=== PATIENT | female | born 1995 | race American Indian/Alaskan Native ===

== ENCOUNTER 2022-11-14 00:12 | Inpatient (IN) | payer BC, MEDICAID ==
[2022-11-14] MEDS ORDERED: Acetaminophen 325 MG Tab PO PRN (09:03)
[2022-11-14] MEDS ORDERED: Sodium Chloride 0.9% 10 ML Syringe FLUSH PRN (09:03)
[2022-11-14] MEDS ORDERED: Carboprost Tromethamine 250 MCG/1 ML Amp IM PRN (09:05)
[2022-11-14] MEDS ORDERED: Lidocaine 1% 30 ML SDV INJECT PRN (09:05)
[2022-11-14] MEDS ORDERED: Tranexamic Acid 1,000 MG in Sodium Chloride 0.9% 100 ML IV PRN (09:05)
[2022-11-14] MEDS ORDERED: Methylergonovine 0.2 MG/1 ML Amp IM PRN (09:05)
[2022-11-14] MEDS ORDERED: Ondansetron 4 MG/2 ML SDV IVPUSH PRN (09:05)
[2022-11-14] MEDS ORDERED: Misoprostol 400 MCG (4 X 100 MCG TAB) RECTAL PRN (09:05)
[2022-11-14] MEDS ORDERED: Misoprostol 25 MCG (1/4 of 100 MCG) Tab VAG PRN (09:10)
[2022-11-14] MEDS ORDERED: Oxytocin/Normal Saline 30 UNIT/500 ML BAG IV SCH ×2 (09:15)
[2022-11-14] MEDS ORDERED: Lactated Ringers 1,000 ML IV SCH (09:15)
[2022-11-14] MEDS: Lactated Ringers 1,000 ML IV SCH ×2 (13:51→17:04)
[2022-11-14] MEDS ORDERED: ePHEDrine 50 MG/ML SDV IVPUSH PRN (15:51)
[2022-11-14] MEDS ORDERED: Phenylephrine HCl In 0.9% NaCl 1 MG/10 ML Syringe IVPUSH PRN (15:51)
[2022-11-14] MEDS ORDERED: Ropivacaine 200 MG in Premix Bag 1 BAG EPIDUR SCH (16:00)
[2022-11-14] MEDS: Ropivacaine 200 MG in Premix Bag 1 BAG EPIDUR SCH ×2 (16:24→23:01)
[2022-11-14] MEDS: Sodium Chloride 0.9% 10 ML Syringe FLUSH SCH (21:08)
[2022-11-15] MEDS ORDERED: Benzocaine/Menthol 20%-0.5% Spray 78 GM Cannister TOP PRN (00:33)
[2022-11-15] MEDS ORDERED: Simethicone 80 MG Tab.Chew PO PRN (00:33)
[2022-11-15] MEDS: Prenatal Multivitamin with Calcium/Folic Acid/Iron Tab PO SCH (11:03)
[2022-11-15] MEDS: Sodium Chloride 0.9% 10 ML Syringe FLUSH SCH ×2 (11:06→21:00)
[2022-11-15] MEDS: Ibuprofen 800 MG Tab PO PRN ×2 (15:50→23:56)
[2022-11-15] MEDS: Acetaminophen 325 MG Tab PO PRN (15:51)
[2022-11-15] MEDS: Docusate Sodium 100 MG Cap PO PRN (15:52)
[2022-11-16] MEDS: Docusate Sodium 100 MG Cap PO PRN (06:32)
[2022-11-16] MEDS: Acetaminophen 325 MG Tab PO PRN (06:33)
[2022-11-16] MEDS: Prenatal Multivitamin with Calcium/Folic Acid/Iron Tab PO SCH (08:16)
[2022-11-16 08:49] VITALS: BP 107/61; PULSE 71
== END 2022-11-16 09:45 | disposition home or self-care (01) | DRG 560 ==
LOC: DL.OB 00:12 → OBSVTOIN 11-15 00:12
PROVIDERS: ADMIT Family Medicine; ATTEND Family Medicine
PROC: 10E0XZZ Delivery of Products of Conception, External Approach (ICD-10-PCS; principal; 2022-11-15)
PROC: 0HQ9XZZ Repair Perineum Skin, External Approach (ICD-10-PCS; 2022-11-15)
PROC: 10907ZC Drainage of Amniotic Fluid, Therapeutic from Products of Conception, Via Natural or Artificial Opening (ICD-10-PCS; 2022-11-15)
PROC: 3E0R3BZ Introduction of Anesthetic Agent into Spinal Canal, Percutaneous Approach (ICD-10-PCS; 2022-11-15)
PROC: 00HU33Z Insertion of Infusion Device into Spinal Canal, Percutaneous Approach (ICD-10-PCS; 2022-11-15)
PROC: 3E033VJ Introduction of Other Hormone into Peripheral Vein, Percutaneous Approach (ICD-10-PCS; 2022-11-15)
PROC: 3E033VJ Introduction of Other Hormone into Peripheral Vein, Percutaneous Approach (ICD-10-PCS; 2022-11-15)
DX: O99.02 Anemia complicating childbirth (principal); Z3A.39 39 weeks gestation of pregnancy; Z37.0 Single live birth; O99.344 Other mental disorders complicating childbirth; O70.0 First degree perineal laceration during delivery; Z20.822 Contact with and (suspected) exposure to COVID-19; F32.A Depression, unspecified; D64.9 Anemia, unspecified
CPT/HCPCS: 36415; 51702; 59409; 85027; A9270-GY; J2405; J2590; J2795; J3490; J7120; U0002

== ENCOUNTER 2024-07-26 00:03 | Inpatient (IN) | payer BC, MEDICAID ==
[~2024-07-26 00:03] MED LIST: Acetaminophen 325 MG Tab PO PRN; Carboprost Tromethamine 250 MCG/1 ML Amp IM PRN; Methylergonovine 0.2 MG/1 ML Amp IM PRN; Misoprostol 100 MCG Tab BUCCAL ONE; Misoprostol 25 MCG (1/4 of 100 MCG) Tab PO PRN; Ondansetron 4 MG/2 ML SDV IVPUSH PRN; Oxytocin/Normal Saline 30 UNIT/500 ML BAG IV SCH; Sodium Chloride 0.9% 10 ML Syringe FLUSH PRN; Tranexamic Acid 1,000 MG in Sodium Chloride 0.9% 100 ML IV PRN; fentaNYL 100 MCG/2 ML SDV IVPUSH PRN
[2024-07-26 00:51] LABS: HEMATOCRIT 37.4 % (37.0-47.0); MEAN CORPUSCULAR HEMOGLOBIN 26.3 pg (27.0-34.0); MEAN CORPUSCULAR HGB CONC 32.1 g/dL (33.0-35.0); MEAN CORPUSCULAR VOLUME 81.8 fL (80-100); RED BLOOD CELL COUNT 4.57 10^6/uL (4.2-5.4); WHITE BLOOD CELL COUNT,WBC 7.7 10^3/uL (5.0-10.0)
[2024-07-26] MEDS: Misoprostol 50 MCG (1/2 of 100 MCG) Tab PO SCH (02:15)
[2024-07-26] MEDS: Lactated Ringers 1,000 ML IV SCH (05:50)
[2024-07-26] MEDS: Oxytocin/Normal Saline 30 UNIT/500 ML BAG IV SCH (06:28)
[2024-07-26] MEDS: Lactated Ringers 1,000 ML IV ONE (09:31)
[2024-07-26] MEDS ORDERED: Phenylephrine HCl In 0.9% NaCl 1 MG/10 ML Syringe IVPUSH PRN (12:28)
[2024-07-26] MEDS ORDERED: ePHEDrine 50 MG/ML SDV IVPUSH PRN (12:28)
[2024-07-26] MEDS ORDERED: Ropivacaine 200 MG in Premix Bag 1 BAG EPIDUR SCH (12:30)
[2024-07-26] MEDS ORDERED: Misoprostol 100 MCG Tab RECTAL PRN ×2 (14:19→16:01)
[2024-07-26] MEDS ORDERED: Tranexamic Acid 1,000 MG in Sodium Chloride 0.9% 100 ML IV PRN (16:01)
[2024-07-26] MEDS ORDERED: Sodium Chloride 0.9% 10 ML Syringe FLUSH PRN (16:01)
[2024-07-26] MEDS ORDERED: Acetaminophen 325 MG Tab PO PRN (16:01)
[2024-07-26] MEDS ORDERED: Oxytocin 10 Units/1 ML SDV IM PRN (16:01)
[2024-07-26] MEDS ORDERED: Simethicone 80 MG Tab.Chew PO PRN (16:01)
[2024-07-26] MEDS ORDERED: Carboprost Tromethamine 250 MCG/1 ML Amp IM PRN (16:01)
[2024-07-26] MEDS: Ibuprofen 800 MG Tab PO SCH (18:50)
[2024-07-26] MEDS: Misoprostol 100 MCG Tab RECTAL ONE (20:33)
[2024-07-26] MEDS: Lidocaine 1% 30 ML SDV INJECT ONE (20:33)
[2024-07-26] MEDS: Docusate Sodium 100 MG Cap PO PRN (20:37)
[2024-07-26] MEDS: Witch Hazel Medicated Pads 100/Jar TOP PRN (20:37)
[2024-07-26] MEDS: Benzocaine/Menthol 20%-0.5% Spray 78 GM Cannister TOP PRN (20:38)
[2024-07-27] MEDS: Ibuprofen 800 MG Tab PO SCH (03:09)
[2024-07-27] MEDS: Prenatal Multivitamin with Calcium/Folic Acid/Iron Tab PO SCH (08:09)
[2024-07-27] MEDS: Furosemide 40 MG Tab PO ONE (11:06)
[2024-07-27] MEDS: Tranexamic Acid 1,000 MG/10 ML Vial ONE (16:35)
[2024-07-27 17:58] VITALS: BP 136/71; PULSE 86
== END 2024-07-27 17:45 | disposition home or self-care (01) | DRG 560 ==
LOC: DL.OB 00:03 → OBSVTOIN 15:46 → DL.OB 15:46
PROVIDERS: ADMIT Family Medicine; ATTEND Family Medicine
PROC: 10E0XZZ Delivery of Products of Conception, External Approach (ICD-10-PCS; principal; 2024-07-26)
PROC: 3E0R3BZ Introduction of Anesthetic Agent into Spinal Canal, Percutaneous Approach (ICD-10-PCS; 2024-07-26)
PROC: 00HU33Z Insertion of Infusion Device into Spinal Canal, Percutaneous Approach (ICD-10-PCS; 2024-07-26)
DX: O77.0 Labor and delivery complicated by meconium in amniotic fluid (principal); Z37.0 Single live birth; Z3A.39 39 weeks gestation of pregnancy
CPT/HCPCS: 36415; 59409; 85027; A9270-GY; C1729; J2590; J7120